=== PATIENT | female | born 1995 | race African-American/Black ===

== ENCOUNTER 2018-07-11 13:55 | Emergency (ER) | payer OTHER ==
[~2018-07-11] VITALS: Ht 157.5 cm; Wt 54.4 kg
[2018-07-11 15:48] LABS: HEMATOCRIT 37.9 % (37.0-47.0); HEMOGLOBIN 12.8 gm/dL (12.0-15.0); MCH 29.5 pg (26.0-34.0); MCHC 33.8 g/dL (28.0-37.0); MCV 87.4 fL (80.0-100.0); RBC 4.34 mil/uL (4.20-5.00); RDW 14.6 % (10.5-14.5)
[2018-07-11] MEDS ORDERED: NORCO 5-325 TA1 EACH PO (18:42)
[2018-07-11 19:12] VITALS: BP 132/68
== END 2018-07-11 19:12 | disposition home or self-care (01) ==
LOC: ER 13:55
PROVIDERS: Physician Assistant
DX: O03.9 Complete or unspecified spontaneous abortion without complication (principal); Z3A.08 8 weeks gestation of pregnancy

== ENCOUNTER 2018-07-27 19:26 | Emergency (ER) | payer OTHER ==
[~2018-07-27] VITALS: Ht 170.2 cm; Wt 54.4 kg
[~2018-07-27 19:26] MED LIST: NORCO 5-325 TA1 EACH PO
[2018-07-27 19:56] LABS: URINE BILIRUBIN NEGATIVE (Negative); URINE BLOOD 3+ (Negative); URINE CLARITY CLEAR; URINE COLOR YELLOW; URINE GLUCOSE-RANDOM* NEGATIVE (Negative); URINE KETONES 1+ (Negative); URINE LEUKOCYTES-REFLEX 2+ (Negative); URINE NITRITE-REFLEX NEGATIVE (Negative); URINE PROTEIN (DIPSTICK) NEGATIVE (Negative); URINE UROBILINOGEN 0.2 E.U./dl (0.2-1.0)
[2018-07-27 20:07] LABS: SQUAMOUS >10 Many /LPF (0-3)
[2018-07-27 20:08] LABS: CASTS None Seen /LPF (None Seen); CRYSTALS None Seen /LPF (None Seen)
[2018-07-27 20:09] LABS: BACTERIA-REFLEX 1-9 Few /HPF (None Seen); URINE RBC 3-10 Few /HPF (0-2); URINE WBC-REFLEX 0-5 Rare /HPF (0-5)
[2018-07-27 20:24] LABS: ABSOLUTE NEUTROPHILS 5.1 thou/uL (1.4-8.2); BASOPHILS 0.7 % (0.0-2.0); EOSINOPHILS 0.5 % (0.0-3.0); HEMATOCRIT 26.6 % (37.0-47.0); LYMPHOCYTES 16.6 % (24.0-44.0); MCH 28.7 pg (26.0-34.0); MCV 84.3 fL (80.0-100.0); MONOCYTES 7.7 % (1.0-8.0); PLATELET COUNT 432 thou/uL (150-400); POLYS 74.5 % (36.0-66.0); RBC 3.15 mil/uL (4.20-5.00); RDW 15.3 % (10.5-14.5); WBC 6.9 thou/uL (4.0-11.0)
[2018-07-27 20:32] LABS: CALCIUM 8.8 mg/dL (8.5-10.1); CREATININE 0.7 mg/dL (0.6-1.0); POTASSIUM 3.6 mmol/L (3.5-5.1)
[2018-07-27] MEDS ORDERED: SENNA-DOCUSATE1 EAC1 PO (23:30)
[2018-07-27] MEDS ORDERED: IBUPROFEN 600600 M1 PO (23:30)
[2018-07-27] MEDS ORDERED: NORCO 5-325 TA1 EACH PO (23:30)
[2018-07-27 23:47] VITALS: BP 109/69
== END 2018-07-27 23:49 | disposition home or self-care (01) ==
LOC: ER 19:26
PROVIDERS: Emergency Medicine
DX: O03.4 Incomplete spontaneous abortion without complication (principal); Z3A.00 Weeks of gestation of pregnancy not specified

== ENCOUNTER 2021-03-18 07:21 | Emergency (ER) | payer BC ==
[~2021-03-18] VITALS: Ht 167.6 cm; Wt 54.4 kg
[~2021-03-18 07:21] MED LIST changes: +IBUPROFEN 600600 M1 PO; +SENNA-DOCUSATE1 EAC1 PO
[2021-03-18 07:27] VITALS: BP 119/56
[2021-03-18 08:04] LABS: ABSOLUTE NEUTROPHILS 4.9 thou/uL (1.4-8.2); BASOPHILS 0.3 % (0.0-2.0); EOSINOPHILS 1.4 % (0.0-3.0); HEMATOCRIT 33.9 % (37.0-47.0); HEMOGLOBIN 11.2 gm/dL (12.0-15.0); LYMPHOCYTES 16.7 % (24.0-44.0); MCH 26.4 pg (26.0-34.0); MCHC 33.1 g/dL (28.0-37.0); MCV 79.8 fL (80.0-100.0); MONOCYTES 9.3 % (1.0-8.0); PLATELET COUNT 295 thou/uL (150-400); POLYS 72.3 % (36.0-66.0); RBC 4.24 mil/uL (4.20-5.00); RDW 17.2 % (10.5-14.5); WBC 6.7 thou/uL (4.0-11.0)
[2021-03-18 08:07] LABS: CALCIUM 8.8 mg/dL (8.5-10.1); CREATININE 0.8 mg/dL (0.6-1.0); POTASSIUM 3.7 mmol/L (3.5-5.1)
[2021-03-18 08:21] LABS: URINE BILIRUBIN NEGATIVE (Negative); URINE BLOOD 3+ (Negative); URINE CLARITY CLOUDY; URINE COLOR RED; URINE GLUCOSE-RANDOM* NEGATIVE (Negative); URINE KETONES TRACE (Negative); URINE NITRITE-REFLEX NEGATIVE (Negative); URINE PROTEIN (DIPSTICK) 1+ (Negative); URINE SPECIFIC GRAVITY >= 1.030 (1.005-1.035); URINE UROBILINOGEN 0.2 E.U./dl (0.2-1.0)
[2021-03-18 08:22] LABS: URINE LEUKOCYTES-REFLEX 1+ (Negative)
[2021-03-18 10:00] LABS: CASTS None Seen /LPF (None Seen); SQUAMOUS 0-3 Few /LPF (0-3)
[2021-03-18 10:01] LABS: CRYSTALS None Seen /LPF (None Seen)
[2021-03-18 10:02] LABS: URINE RBC >20 Many /HPF (NONE SEEN)
[2021-03-18 10:03] LABS: URINE WBC-REFLEX 6-15 Few /HPF (0-5)
== END 2021-03-18 09:45 | disposition home or self-care (01) ==
LOC: ER 07:21
PROVIDERS: Student in an Organized Health Care Education/Training Program
DX: N92.1 Excessive and frequent menstruation with irregular cycle (principal)